=== PATIENT | female | born 2000 | race Caucasian/White ===

== ENCOUNTER 2021-11-29 04:04 | Emergency (ER) | payer OTHER ==
[~2021-11-29] VITALS: Ht 162.6 cm; Wt 61.0 kg
[~2021-11-29 04:04] MED LIST: TYLENOL & COD12.5 ML PO; VARIVAX SC
[2021-11-29 04:25] VITALS: BP 122/89
[2021-11-29 04:30] VITALS: BP 129/89
[2021-11-29 04:33] LABS: HEMATOCRIT 40.9 % (37.0-47.0); HEMOGLOBIN 13.5 g/dl (12.0-16.0); IMMATURE GRANULOCYTES 0.2 % (0.0-5.0); MEAN CELL VOLUME 89.5 fL CALC (80.0-100.0); MEAN CORPUSCULAR HGB 29.5 pG CALC (26.0-32.0); NEUT# 2.45 thou/uL (2.00-7.15); RED BLOOD COUNT 4.57 mill/uL (4.20-5.60); RED CELL DISTRI WIDTH 13.1 % (11.5-15.5)
[2021-11-29 04:45] LABS: HCG SERUM/URINE (NEG/POS) NEGATIVE (NEGATIVE)
[2021-11-29 04:49] LABS: ALBUMIN 4.5 g/dL (3.2-5.0); ALKALINE PHOSPHATASE 78 u/l (38-126); AMYLASE 81 u/l (30-110); ANION GAP 11 (6-22 (CALC)); BUN 11 mg/dL (7-17); BUN/CREATININE RATIO 15 (12-20 (CALC)); CARBON DIOXIDE 25 mmol/l (22-30); CHLORIDE 105 mmol/l (95-108); CREATININE 0.8 mg/dL (0.5-1.0); GFR FOR AFR.AMER. > 60 ML/MIN (>=60 (CALC)); GFR OTHER RACES > 60 ML/MIN (>=60 (CALC)); LIPASE 86 u/l (23-300); POTASSIUM 3.9 mmol/l (3.5-5.1); SGOT/AST 21 u/l (14-36); SODIUM 136 mmol/l (137-146); TOTAL PROTEIN 7.8 g/dL (6.3-8.2)
[2021-11-29 05:01] VITALS: BP 119/76
[2021-11-29 05:30] VITALS: BP 130/81
[2021-11-29] MEDS ORDERED: ONDANSETRON4 MG PO (05:36)
[2021-11-29 05:38] VITALS: BP 130/81
== END 2021-11-29 05:45 | disposition home or self-care (01) | DRG 866 ==
LOC: ED 04:04
PROVIDERS: Emergency Medicine
DX: B34.9 Viral infection, unspecified (principal); Z20.822 Contact with and (suspected) exposure to COVID-19

== ENCOUNTER 2024-02-20 08:40 | Day surgery (SDC) | payer OTHER ==
[~2024-02-20] VITALS: Ht 167.6 cm; Wt 62.5 kg
[2024-02-20] VITALS (11 sets, daily range): BP systolic 121–148; BP diastolic 91–109
[~2024-02-20 08:40] MED LIST changes: +ONDANSETRON4 MG PO
[2024-02-20] MEDS ORDERED: SODIUM CHLORIDE 0.9% 1,000 ML IV ONE ×2 (08:55→14:08)
[2024-02-20 09:21] LABS: ALBUMIN 4.6 g/dL (3.2-5.0); BILIRUBIN, TOTAL 1.2 mg/dL (0.02-1.3); CREATININE 0.7 mg/dL (0.5-1.0); POTASSIUM 4.2 mmol/l (3.5-5.1); TOTAL PROTEIN 7.8 g/dL (6.3-8.2)
[2024-02-20] MEDS ORDERED: SODIUM CHLORIDE 1,000 ML BTL IR ONE (10:50)
[2024-02-20] MEDS ORDERED: STERILE WATER FOR IRRIGATION 1,000 ML BTL IR ONE (10:50)
[2024-02-20] MEDS ORDERED: LIDOcaine HCl 1% (Local Anesth.) 20 ML VIAL ONE (10:50)
[2024-02-20] MEDS ORDERED: Iopamidol 300 (Isovue) 61% 100ML SDV IV ONE (10:51)
[2024-02-20] MEDS ORDERED: LACTATED RINGER'S 1,000 ML IV ONE ×2 (11:12→14:08)
[2024-02-20] MEDS ORDERED: FAMOTIDINE 10MG/ML 2ML SDV IV ONE (11:12)
[2024-02-20] MEDS ORDERED: PERCOCET 5/325M1 TAB PO (12:03)
[2024-02-20] MEDS ORDERED: ACETAMINOPHEN 100 ML IV ONE (13:26)
[2024-02-20] MEDS ORDERED: SODIUM CHLORIDE 0.9% 100 ML IV ONE (13:44)
[2024-02-20] MEDS ORDERED: ceFAZolin Sodium 2 GM/VIAL SDV ONE (13:44)
[2024-02-20] MEDS ORDERED: ROCURONIUM BROMIDE 10 MG/ML 5ML VIAL IV ONE (14:05)
[2024-02-20] MEDS ORDERED: DEXAMETHASONE SODIUM PHOSPHATE PF 10 MG/ML SDV IV ONE (14:05)
[2024-02-20] MEDS ORDERED: PROPOFOL 200 MG/20 ML VIAL IV ONE (14:05)
[2024-02-20] MEDS ORDERED: ONDANSETRON HCl 4 MG/2 ML SDV IV ONE (14:05)
[2024-02-20] MEDS ORDERED: SUGAMMADEX SODIUM 200 MG/2 ML SDV IV ONE (14:05)
[2024-02-20] MEDS ORDERED: MIDAZOLAM HCL 2 MG/2 ML VIAL IV ONE (14:05)
[2024-02-20] MEDS ORDERED: KETOROLAC TROMETHAMINE 30 MG/ML SDV IV ONE (14:05)
[2024-02-20] MEDS ORDERED: LIDOCAINE HCL 2% 2ML SDV IV ONE (14:05)
== END 2024-02-20 14:20 | disposition home or self-care (01) | DRG 419 ==
LOC: ED 08:40 → ORM 09:48 → ED 11:12 → ORM 12:53
PROVIDERS: Family Medicine; ATTEND Surgery
PROC: 0FT44ZZ Resection of Gallbladder, Percutaneous Endoscopic Approach (ICD-10-PCS; principal; 2024-02-20)
PROC: BF101ZZ Fluoroscopy of Bile Ducts using Low Osmolar Contrast (ICD-10-PCS; 2024-02-20)
DX: K80.12 Calculus of gallbladder with acute and chronic cholecystitis without obstruction (principal); Z20.822 Contact with and (suspected) exposure to COVID-19
CPT/HCPCS: J0131; J0690; J1100; Q9966